=== PATIENT | male | born 1975 | race Caucasian/White ===

== ENCOUNTER 2016-09-20 05:56 | Emergency (ER) | payer OTHER ==
[2016-09-20 06:23] VITALS: BMI 34.9
[2016-09-20] MEDS ORDERED: SODIUM CHLORIDE 1,000 ML IV STA ×2 (07:43→09:20)
--- NOTE | 2016-09-20 07:55 | PDOC ---
[id number] No Limitations - History of Present Illness Timing/Duration: 1-3 hours Associated Symptoms: reports: nausea/vomiting (resolved on arrival to the ER). denies: chest pain, malaise <Brannon Agustinui - Last Filed: 11/23/16 14:32> <Sarah Carrillo - Last Filed: 11/24/16 09:08> - General Chief Complaint: Nausea/Vomiting Stated Complaint: VOMITING Time Seen by Provider: 09/20/16 07:12 Past History - Past Medical History Asthma: Yes - Immunization History Immunization Up to Date: Yes - Psycho/Social/Smoking Cessation Hx Suicidal Ideation: No Smoking History: Never smoked Have you smoked in the past 12 months: No Number of Cigarettes Smoked Daily: 0 Cigars Per Day: 0 Information on smoking cessation initiated: No Hx Alcohol Use: No Drug/Substance Use Hx: No <Kylie Agustin - Last Filed: 11/23/16 14:32> <Sarah Carrillo - Last Filed: 11/24/16 09:08> - Past Medical History Allergies/Adverse Reactions: Allergies Allergy/AdvReac Type Severity Reaction Status Date / Time No Known Allergies Allergy Verified 09/20/16 06:12 Home Medications: Ambulatory Orders Albuterol 0.083% Nebulizer Valerie [Ventolin 0.083% Nebulizer Soln -] 1 neb NEB Q4H PRN #20 vial 12/22/15 Gabapentin [Neurontin] 600 mg PO Q8H PRN 03/28/16 Review of Systems - Review of Systems Able to Perform ROS?: Yes Comments:: 09/20/16 07:53 CONSTITUTIONAL: +generalized weakness Absent: fever, chills, diaphoresis, malaise, loss of appetite HEENT: Absent: rhinorrhea, nasal congestion, throat pain, throat swelling, difficulty swallowing, mouth swelling, ear pain, eye pain, visual Changes CARDIOVASCULAR: Absent: chest pain, loss of consciousness, palpitations, irregular heart rate, peripheral edema RESPIRATORY: +sob Absent: cough, dyspnea with exertion, orthopnea, wheezing, stridor, hemoptysis GASTROINTESTINAL: Absent: abdominal pain, abdominal distension, nausea, vomiting, diarrhea, constipation, melena, hematochezia GENITOURINARY: Absent: dysuria, frequency, urgency, hesitancy, hematuria, flank pain, genital pain MUSCULOSKELETAL: Absent: myalgia, arthralgia, joint swelling SKIN: Absent: rash, itching, pallor HEMATOLOGIC/IMMUNOLOGIC: Absent: easy bleeding, easy bruising, lymphadenopathy, frequent infections ENDOCRINE: Absent: unexplained weight gain, unexplained weight loss, heat intolerance, cold intolerance NEUROLOGIC: Absent: headache, focal weakness or paresthesias, dizziness, unsteady gait, seizure, mental status changes, bladder or bowel incontinence PSYCHIATRIC: Absent: anxiety, depression, suicidal or homicidal ideation, hallucinations. Is the patient limited Belgian proficient: No <Kylie Agustin - Last Filed: 11/23/16 14:32> *Physical Exam - Vital Signs Last Vital Signs Temp Pulse Resp BP Pulse Ox 97.1 F L 75 20 116/56 98 09/20/16 06:13 09/20/16 06:13 09/20/16 06:13 09/20/16 06:13 09/20/16 06:26 - Physical Exam Comments: 09/20/16 07:53 GENERAL: Well developed, well nourished. Awake and alert. No acute distress. HEENT: Normocephalic, atraumatic. PERRLA, EOMI. No conjunctival pallor. Sclera are non- icteric. Moist mucous membranes. Oropharynx is clear. NECK: Supple. Full ROM. No JVD. Carotid pulses 2+ and symmetric, without bruits. No thyromegaly. No lymphadenopathy. CARDIOVASCULAR: Regular rate and rhythm. No murmurs, rubs, or gallops. Distal pulses are 2+ and symmetric. PULMONARY: No evidence of respiratory distress. wheezing auscultation bilaterally on expiration. No wheezing, rales or rhonchi. ABDOMINAL: Soft. Non-tender. Non-distended. No rebound or guarding. No organomegaly. Normoactive bowel sounds. MUSCULOSKELETAL Normal range of motion at all joints. No bony deformities or tenderness. No CVA tenderness. EXTREMITIES: No cyanosis. No clubbing. No edema. No calf tenderness. SKIN: Warm and dry. Normal capillary refill. No rashes. No jaundice. NEUROLOGICAL: Alert, awake, appropriate. Cranial nerves 2-12 intact. No deficits to light touch and temperature in face, upper extremities and lower extremities. No motor deficits in the in face, upper extremities and lower extremities. Normoreflexic in the upper and lower extremities. Normal speech. Toes are down- going bilaterally. Gait is normal without ataxia. PSYCHIATRIC: Cooperative. Good eye contact. Appropriate mood and affect. 09/20/16 07:58 <Kylie Agustin - Last Filed: 11/23/16 14:32> - Vital Signs Last Vital Signs Temp Pulse Resp BP Pulse Ox 97.8 F 69 18 121/57 96 09/20/16 12:24 09/20/16 12:24 09/20/16 12:24 09/20/16 12:24 09/20/16 12:24 <Sarah Carrillo - Last Filed: 11/24/16 09:08> ED Treatment Course - LABORATORY CBC & Chemistry Diagram: 09/20/16 12:24 09/20/16 08:00 - RADIOLOGY Radiology Studies Ordered: Category Date Time Status CHEST PA & LAT [RAD] Stat Radiology 09/20/16 07:42 Ordered <Kylie Agustin - Last Filed: 11/23/16 14:32> - LABORATORY CBC & Chemistry Diagram: 09/20/16 12:24 09/20/16 08:00 - ADDITIONAL ORDERS Additional order review: 09/20/16 08:45 Throat Culture - Final Throat NO BETA HEMOLYTIC STREPTOCOCCI ISOLATED Group A Strep Rapid Antigen - Final 09/20/16 09/20/16 12:24 08:00 RBC 4.72 4.89 MCV 94.9 94.6 MCHC 33.7 34.6 RDW 12.8 12.7 MPV 9.8 9.6 Neutrophils % 76.3 89.5 H D Lymphocytes % 15.1 D 6.1 L D Monocytes % 4.2 3.1 L Eosinophils % 3.5 D 1.0 D Basophils % 0.9 0.3 - Medications Given in the ED: ED Medications Discontinued Medications Generic Name Dose Route Start Last Admin Trade Name Freq PRN Reason Stop Dose Admin Albuterol/Ipratropium 1 amp 09/20/16 07:56 09/20/16 07:55 Duoneb - NEB 09/20/16 07:57 1 amp ONCE ONE Administration Sodium Chloride 1,000 mls @ 1,000 mls/hr 09/20/16 07:43 09/20/16 07:50 Normal Saline - IV 09/20/16 08:42 1,000 mls/hr ASDIR STA Administration Sodium Chloride 1,000 mls @ 1,000 mls/hr 09/20/16 09:20 09/20/16 10:54 Normal Saline - IV 09/20/16 10:19 1,000 mls/hr ASDIR STA Administration Ibuprofen 600 mg 09/20/16 12:02 09/20/16 12:24 Motrin - PO 09/20/16 12:03 600 mg ONCE ONE Administration <Sarah Carrillo - Last Filed: 11/24/16 09:08> *DC/Admit/Observation/Transfer <Kylie Agustin - Last Filed: 11/23/16 14:32> - Attestations Physician Attestion: I reviewed the case with the mid-level practitioner and agree with the mid- level practitioner's assessment, diagnosis and disposition. <Sarah Carrillo - Last Filed: 11/24/16 09:08> Diagnosis at time of Disposition: Nausea, Sore throat - Discharge Dispostion Disposition: HOME Condition at time of disposition: Improved - Referrals Referrals: STAFF,NOT ON [Primary Care Provider] - - Patient Instructions Printed Discharge Instructions: DI for Nausea -- Adult Additional Instructions: Please take Motrin 600 mg as needed for discomfort. Please stay well-hydrated and eat well-balanced meals throughout the day. If your symptoms worsen please return to the ED . otherwise follow-up with your PCP
[2016-09-20] MEDS ORDERED: ALBUTEROL SO4 2.5/IPRATROPIUM 0.5 INH SOL 3 ML VIAL.NEB. NEB ONE (07:56)
[2016-09-20 08:16] LABS: BASOPHIL 0.3 % (0-2.0); MCH 32.7 pg (25.7-33.7); MCHC 34.6 g/dl (32.0-35.9); MEAN CELL VOLUME 94.6 fl (80-96); MEAN PLT VOLUME 9.6 fl (7.5-11.1); NEUTROPHILS 89.5 % (42.8-82.8); PLATELET COUNT 237 K/MM3 (134-434); RDW 12.7 % (11.9-15.9); WHITE BLOOD COUNT 16.5 K/mm3 (4.0-10.0)
[2016-09-20 08:54] LABS: ALBUMIN 4.2 g/dl (3.4-5.0); ANION GAP 5 (8-16); CALCIUM 8.9 mg/dL (8.5-10.1); CO2 28 mmol/L (21-32); CREATININE 1.2 mg/dL (0.7-1.3); GLUCOSE,RANDOM 101 mg/dL (74-106); SGOT/AST 23 U/L (15-37); SGPT/ALT 55 U/L (12-78)
[2016-09-20 08:56] LABS: ALK PHOS 70 U/L (45-117); BILIRUBIN,TOTAL 0.4 mg/dL (0.2-1.0)
--- NOTE | 2016-09-20 08:59 | PDOC ---
History of Present Illness - General Chief Complaint: Nausea/Vomiting Stated Complaint: VOMITING Time Seen by Provider: 09/20/16 07:12 History Source: Patient Exam Limitations: No Limitations - History of Present Illness Initial Comments: 09/20/16 07:15 41-year-old male presents the ED with complaints of nausea at around 3 AM this morning. 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 Patient states then went back to the table and started to have wheezing and felt concerned since he did not have his albuterol inhaler which he uses for his asthma. Patient denies chest pain, fever , chills headache, dizziness, palpitations, diarrhea, dysuria, or rash. Patient does complain of throat pain for the past few days without difficulty swallowing or change in voice. Patient denies medical history and denies drug or smoking history. Timing/Duration: 4-6 hours Severity: moderate Associated Symptoms: reports: nausea/vomiting, shortness of breath (with wheezing) Past History - Past Medical History Allergies/Adverse Reactions: Allergies Allergy/AdvReac Type Severity Reaction Status Date / Time No Known Allergies Allergy Verified 09/20/16 06:12 Home Medications: Ambulatory Orders Albuterol 0.083% Nebulizer Valerie [Ventolin 0.083% Nebulizer Soln -] 1 neb NEB Q4H PRN #20 vial 12/22/15 Gabapentin [Neurontin] 600 mg PO Q8H PRN 03/28/16 Asthma: Yes - Immunization History Immunization Up to Date: Yes - Psycho/Social/Smoking Cessation Hx Suicidal Ideation: No Smoking History: Never smoked Have you smoked in the past 12 months: No Number of Cigarettes Smoked Daily: 0 Cigars Per Day: 0 Information on smoking cessation initiated: No Hx Alcohol Use: No Drug/Substance Use Hx: No Patient Lives Alone: No Lives with/in: spouse/SO Review of Systems - Review of Systems Is the patient limited Mexican proficient: No Constitutional: No: Symptoms Reported HEENTM: No: Symptoms Reported Respiratory: Yes: Shortness of Breath, Wheezing Cardiac (ROS): No: Symptoms Reported ABD/GI: Yes: Nausea, Abdominal cramping (generalized). No: Vomiting : No: Symptoms Reported Musculoskeletal: No: Symptoms Reported Integumentary: No: Symptoms Reported Neurological: No: Symptoms reported Hematologic/Lymphatic: No: Symptoms Reported *Physical Exam - Vital Signs Last Vital Signs Temp Pulse Resp BP Pulse Ox 97.1 F L 97 H 20 105/91 97 09/20/16 06:13 09/20/16 07:50 09/20/16 08:03 09/20/16 07:50 09/20/16 08:03 - Physical Exam General Appearance: Yes: Nourished, Appropriately Dressed. No: Apparent Distress HEENT: positive: EOMI, GABRIEL, Normal Voice, Pharyngeal Erythema (with 2-3+ tonsillar edema). negative: Pale Conjunctivae, Tonsillar Exudate Neck: positive: Supple. negative: Lymphadenopathy (R), Lymphadenopathy (L) Respiratory/Chest: positive: Lungs Clear, Normal Breath Sounds. negative: Respiratory Distress, Accessory Muscle Use Cardiovascular: positive: Regular Rhythm, Regular Rate. negative: Murmur Gastrointestinal/Abdominal: positive: Normal Bowel Sounds, Soft. negative: Distended, Tenderness Musculoskeletal: negative: CVA Tenderness Extremity: positive: Normal Capillary Refill. negative: Pedal Edema Integumentary: positive: Normal Color, Warm, Moist Neurologic: positive: Motor Strength 5/5 (ambulatory) ED Treatment Course - LABORATORY CBC & Chemistry Diagram: 09/20/16 12:24 09/20/16 08:00 - Medications Given in the ED: ED Medications Discontinued Medications Generic Name Dose Route Start Last Admin Trade Name Freq PRN Reason Stop Dose Admin Albuterol/Ipratropium 1 amp 09/20/16 07:56 09/20/16 07:55 Duoneb - NEB 09/20/16 07:57 1 amp ONCE ONE Administration Medical Decision Making - Medical Decision Making 09/20/16 07:17 Patient complaints of nausea and vomiting generalized abdominal cramping that led to shortness of breath and wheezing secondary to repetitive gagging. Patient on exam had no abdominal tenderness was found to have no wheezing which was auscultated initially and was given a DuoNeb prior to my arrival. Patient was also given fluids, urine ordered and labs received. 09/20/16 09:21 Laboratory Tests 09/20/16 09/20/16 08:00 08:00 WBC 16.5 H D Hgb 16.0 Hct 46.3 Neutrophils % 89.5 H D Sodium 138 Potassium 4.6 D Laboratory Tests 09/20/16 08:00 Anion Gap 5 L BUN 19 H D Creatinine 1.2 Random Glucose 101 Total Bilirubin 0.4 AST 23 ALT 55 Secondary to elevated CBC have ordered a second bag of IV fluids. Lipase was also added including a urinalysis. I will consider repeating CBC also 09/20/16 10:37 Laboratory Tests 09/20/16 09/20/16 08:00 08:51 Lipase 91 Opiates Screen Negative Methadone Screen Negative Barbiturate Screen Negative Phencyclidine Screen Negative Ur Amphetamines Screen Negative MDMA (Ecstasy) Screen Negative Benzodiazepines Screen Negative Cocaine Screen Negative U Marijuana (THC) Screen Positive UA pending. rapid strep neg. Laboratory Tests 09/20/16 10:31 Urine Protein 1+ H Urine Ketones Trace H Urine Blood 1+ H Ur Leukocyte Esterase Negative Urine RBC 6 09/20/16 12:49 Laboratory Tests 09/20/16 12:24 WBC 13.7 H Hgb 15.1 Hct 44.8 Neutrophils % 76.3 Pt states feeling better and requesting to go home. discharge home to drink plenty of fluids and rest. *DC/Admit/Observation/Transfer Diagnosis at time of Disposition: Nausea, Sore throat - Discharge Dispostion Disposition: HOME Condition at time of disposition: Improved - Patient Instructions Printed Discharge Instructions: DI for Nausea -- Adult Additional Instructions: Please take Motrin 600 mg as needed for discomfort. Please stay well-hydrated and eat well-balanced meals throughout the day. If your symptoms worsen please return to the ED . otherwise follow-up with your PCP
[2016-09-20 09:25] LABS: URINE MARIJUANA THC POSITIVE ng/ml (CUTOFF=50)
[2016-09-20 10:52] LABS: URINE APPEARANCE TURBID; URINE BILIRUBIN NEGATIVE (NEGATIVE); URINE COLOR GREEN; URINE GLUCOSE (UA) NEGATIVE (NEGATIVE); URINE KETONE TRACE (NEGATIVE); URINE LEUK ESTERASE NEGATIVE (NEGATIVE); URINE NITRITE NEGATIVE (NEGATIVE); URINE UROBILINOGEN NEGATIVE E.U./dl (0.2-1.0)
[2016-09-20 10:55] LABS: URINE BLOOD 1+ (NEGATIVE); URINE PROTEIN 1+ (NEGATIVE)
[2016-09-20 11:17] LABS: URINE MUCUS MANY; URINE RBC 6 /hpf (0-3)
[2016-09-20] MEDS ORDERED: IBUPROFEN 600 MG TABLET (FP) PO ONE (12:02)
[2016-09-20 12:25] VITALS: BP 121/57; PULSE 69; TEMP 97.8
[2016-09-20 12:28] LABS: BASOPHIL 0.9 % (0-2.0); EOSINOPHIL 3.5 % (0-4.5); MCHC 33.7 g/dl (32.0-35.9); MEAN CELL VOLUME 94.9 fl (80-96); MEAN PLT VOLUME 9.8 fl (7.5-11.1); NEUTROPHILS 76.3 % (42.8-82.8); RDW 12.8 % (11.9-15.9); WHITE BLOOD COUNT 13.7 K/mm3 (4.0-10.0)
[2016-09-20 12:52] LABS: PLATELET COUNT 192 K/MM3 (134-434)
--- NOTE | 2016-09-20 23:52 | EKG ---
Test Reason : Blood Pressure : / mmHG Vent. Rate : 082 BPM Atrial Rate : 082 BPM P-R Int : 150 ms QRS Dur : 094 ms QT Int : 414 ms P-R-T Axes : 054 -02 037 degrees QTc Int : 483 ms POOR DATA QUALITY, INTERPRETATION MAY BE ADVERSELY AFFECTED SINUS RHYTHM WITH MARKED SINUS ARRHYTHMIA MINIMAL VOLTAGE CRITERIA FOR LVH, MAY BE NORMAL VARIANT PROLONGED QT ABNORMAL ECG WHEN COMPARED WITH ECG OF 28-MAR-2016 06:00, NO SIGNIFICANT CHANGE WAS FOUND Confirmed by GILSON CHANDLER MD ([id number]) on 09/20/2016 11:51:55 PM Referred By: Confirmed By:GILSON CHANDLER MD
== END 2016-09-20 13:10 | disposition home or self-care (01) ==
LOC: JER 05:56
PROC: 3E0F7GC Introduction of Other Therapeutic Substance into Respiratory Tract, Via Natural or Artificial Opening (ICD-10-PCS; principal; 2016-09-20)
PROC: 3E0337Z Introduction of Electrolytic and Water Balance Substance into Peripheral Vein, Percutaneous Approach (ICD-10-PCS; 2016-09-20)
DX: J02.9 Acute pharyngitis, unspecified (principal); R11.2 Nausea with vomiting, unspecified; J45.909 Unspecified asthma, uncomplicated
CPT/HCPCS: 36415; 71020-TC; 80053; 80307; 81003; 81015; 83690; 85025; 87070; 87430; 93005; 93010; 94640; 96360; 96361; 99285-25